=== PATIENT | male | born 1960 | race Caucasian/White ===

== ENCOUNTER 2019-12-01 10:21 | Emergency (ER) | payer OTHER ==
[~2019-12-01] VITALS: Ht 188 cm; Wt 68.0 kg
[~2019-12-01 10:21] MED LIST: CYCL10 PO; Crutch1 EACH MISC; IBUP600 PO; Norco 10-325 T1 EACH PO; Norco 5-325 Ta1 EACH PO; Ultram50 MG PO
[2019-12-01] MEDS ORDERED: HYDHCL25 PO ×2 (11:01)
[2019-12-01] MEDS ORDERED: IBUP600 PO ×2 (11:01)
== END 2019-12-01 11:14 | disposition home or self-care (01) ==
LOC: ER 10:21
DX: G47.00 Insomnia, unspecified (principal); F41.9 Anxiety disorder, unspecified; M25.50 Pain in unspecified joint; F17.210 Nicotine dependence, cigarettes, uncomplicated; Z86.19 Personal history of other infectious and parasitic diseases
CPT/HCPCS: 99283

== ENCOUNTER 2019-12-02 17:41 | Observation (INO) | payer OTHER ==
[~2019-12-02] VITALS: Ht 188 cm; Wt 68.1 kg
[~2019-12-02 17:41] MED LIST changes: +HYDHCL25 PO
--- NOTE | 2019-12-02 22:51 | NUR ---
PT TO SDS. AGREES WITH PLANNED PROCEDURE. DR. AREVALO IN TO SEE PT AND OBTAIN CONSENT. AWARE PT NPO ONLY 6 HOURS AND PLANS TO PROCEED WITH PROPOFOL SEDATION.
--- NOTE | 2019-12-02 23:06 | NUR ---
12/02/19 [id number] Mikayla Tolliver History, Chart, Medications and Allergies reviewed before start of procedure. PATIENT CONFIRMS NPO STATUS AND AGREES WITH SCHEDULED PROCEDURE. MONITOR INTACT WITH CONTINUOUS PULSE OXIMETRY AND INTERMITTENT BP. O2 VIA N/C INTACT THROUGHOUT SEDATION/PROCEDURE. 3-LEAD EKG REVIEWED WITH PHYSICIAN PRIOR TO START OF PROCEDURE. PATIENT DETERMINED TO BE ASA APPROPRIATE FOR PROPOFOL SEDATION PRIOR TO START OF PROCEDURE BY DR. AREVALO. AWARE PT NPO SINCE 1644 AND WANT TO PROCEDE.
[2019-12-03 03:27] LABS: BASOPHILS ABSOLUTE AUTO 0.09 K/mm3 (0.00-0.23); BASOPHILS PERCENT AUTO 1 % (0-2); EOSINOPHILS ABSOLUTE AUTO 0.34 K/mm3 (0.00-0.68); EOSINOPHILS PERCENT AUTO 4 % (0-6); Hematocrit 39.8 % (37.0-53.0); Hemoglobin 13.2 g/dL (13.5-17.5); IMMATURE GRAN ABSOLUTE AUTO 0.06 K/mm3 (0.00-0.10); IMMATURE GRAN PERCENT AUTO 1 % (0-1); LYMPHOCYTES ABSOLUTE AUTO 2.66 K/mm3 (0.84-5.20); LYMPHOCYTES PERCENT AUTO 29 % (21-46); MONOCYTES ABSOLUTE AUTO 0.91 K/mm3 (0.16-1.47); MONOCYTES PERCENT AUTO 10 % (4-13); Mean Corpuscular HGB 31.1 pg (26.0-34.0); Mean Corpuscular HGB Conc 33.2 g/dL (31.5-36.5); Mean Corpuscular Volume 94 fL (80-100); Mean Platelet Volume 8.8 fL (9.1-12.4); NEUTROPHILS ABSOLUTE AUTO 5.22 K/mm3 (1.96-9.15); NEUTROPHILS PERCENT AUTO 56 % (41-73); Platelet Count 280 K/mm3 (150-400); RDW Coefficient Variation 14.9 % (11.7-14.2); RDW Standard Deviation 51.1 fL (35.1-46.3); Red Blood Cell Count 4.25 M/mm3 (4.30-5.90); White Blood Cell Count 9.28 K/mm3 (4.00-11.30)
[2019-12-03 03:41] LABS: International Normalized Ratio 0.97; Prothrombin Time Results 10.4 Sec (9.7-11.5)
[2019-12-03 03:47] LABS: Alanine Aminotransfer (ALT/SGP 106 U/L (12-78); Albumin, Blood 3.3 g/dL (3.4-5.0); Albumin/Globulin Ratio 0.9 (0.8-1.8); Alk Phos 83 U/L (50-136); Anion Gap 4 mmol/L (6-16); Aspartate Aminotrans (AST/SGOT 47 U/L (12-37); Bilirubin, Total 0.5 mg/dL (0.1-1.0); Blood Urea Nitrogen 19 mg/dL (8-24); CO2, Blood 27 mmol/L (21-32); Calcium, Blood 8.2 mg/dL (8.5-10.1); Chloride, Blood 111 mmol/L (98-108); Creatinine, Blood 0.86 mg/dL (0.60-1.20); Globulin, Blood 3.6 g/dL (2.2-4.0); Glomerular Filtration Rate >60 (60-); Glucose, Blood 83 mg/dL (70-99); Potassium, Blood 3.4 mmol/L (3.5-5.5); Sodium, Blood 142 mmol/L (136-145); Total Protein, Blood 6.9 g/dL (6.4-8.2)
--- NOTE | 2019-12-03 06:42 | NUR ---
PT IS A&OX4, FOLLOWS COMMANDS, MOVES ALL EXTREMETIES, SATS >95% ON ROOM AIR, SINUS BRITTNEY, BP < 160. ABLE TO TOLERATE FULL LIQUID DIET AND CAN ADVANCE DIET TOLERATED. PICTURES AND RX FOR BEDREST IN DISCHARGE FOLDER. PT WAS ADMITTED FOR EXTENDED RECOVERY POST-OP.
--- NOTE | 2019-12-03 10:05 | NUR ---
DISCHARGE: PT GIVEN DISCHARGE ORDERS REGARDING DIET, FOLLOW UP AND ACTIVITY RESTRICTIONS FOR THE DAY. PT VERBALIZED UNDERSTANDING OF ALL INSTRUCTIONS. PT GIVEN SCRIPT FOR BEDREST FOR TODAY. PT GETTING TO [place] BY BUS. PT STATES HE HAS BUS PASS AND CALLED TO FIND WHEN NEXT BUS IS. ALL QUESTIONS ANSWERED. PT DISCHARGED AT 1010.
== END 2019-12-03 10:10 | disposition home or self-care (01) ==
LOC: ER 17:41 → ICUW 17:42 → ER 22:45 → ICUW 12-03 01:10
PROVIDERS: ADMIT Internal Medicine Gastroenterology
PROC: 0DC18ZZ Extirpation of Matter from Upper Esophagus, Via Natural or Artificial Opening Endoscopic (ICD-10-PCS; principal; 2019-12-02 23:00)
DX: T18.128A Food in esophagus causing other injury, initial encounter (principal); X58.XXXA Exposure to other specified factors, initial encounter
CPT/HCPCS: 36415; 80053; 85025; 85610; 96374; 96375; 96376; 99284-25; G0378; J0330; J1610; J2250; J2704; J3360; J7120